=== PATIENT | female | born 1985 | race Caucasian/White ===

== ENCOUNTER 2017-06-29 15:30 | Emergency (ER) | payer BC, OTHER ==
[2017-06-29] MEDS ORDERED: SODIUM CHLORIDE 1,000 ML IV STA ×2 (15:38→18:47)
--- NOTE | 2017-06-29 15:38 | PDOC ---
History of Present Illness - General History Source: Patient, Old Records Exam Limitations: No Limitations - History of Present Illness Initial Comments: 06/29/17 16:17 The patient is a 31 year old 9 week female with no significant past medical history who presents to the emergency department with nausea and vomiting today. The patient states that she has been before and that she was sick with similar symptoms throughout her entire first . She states that she has been unable to keep any food or fluid down today. The patient states that her symptoms are usually worse at night. She notes that in the past Zofran and fluids have helped with her symptoms. She denies and abdominal or epigastric pain. <Nakul Carrera - Last Filed: 06/29/17 16:18> <Karen Voss - Last Filed: 06/29/17 17:36> <Imtiaz Park - Last Filed: 06/29/17 20:10> - General Chief Complaint: Nausea/Vomiting Stated Complaint: VOMITING [address] [facility] Time Seen by Provider: 06/29/17 15:37 Past History <Nakul Carrera - Last Filed: 06/29/17 16:18> <Karen Voss - Last Filed: 06/29/17 17:36> <Imtiaz Park - Last Filed: 06/29/17 20:10> - Past Medical History Allergies/Adverse Reactions: Allergies Allergy/AdvReac Type Severity Reaction Status Date / Time No Known Allergies Allergy Unverified 06/29/17 15:32 Home Medications: Ambulatory Orders Doxylamine Succinate/Vit B6 [Diclegis Dr 10-10 mg Tablet] 1 each PO BID Doxylamine Succinate/Vit B6 [Diclegis Dr 10-10 mg Tablet] 2 each PO HS 06/29/17 Metoclopramide HCl [Reglan] 10 mg PO TID PRN #12 tablet 06/29/17 Ondansetron [Zofran Odt -] 4 mg SL BID PRN #14 od.tablet 06/29/17 Review of Systems - Review of Systems Able to Perform ROS?: Yes Comments:: 06/29/17 16:18 GENERAL/CONSTITUTIONAL: No fever or chills. No weakness. HEAD, EYES, EARS, NOSE AND THROAT: No change in vision. No ear pain or discharge. No sore throat. GASTROINTESTINAL: (+) Nausea, Vomiting. No diarrhea or constipation. GENITOURINARY: No dysuria, frequency, or change in urination. CARDIOVASCULAR: No chest pain or shortness of breath. MUSCULOSKELETAL: No joint or muscle swelling or pain. No neck or back pain. ENDOCRINE: No increased thirst. No abnormal weight change. <Nakul Carrera - Last Filed: 06/29/17 16:18> *Physical Exam - Vital Signs Last Vital Signs Temp Pulse Resp BP Pulse Ox 97.8 F 87 16 110/71 99 06/29/17 15:31 06/29/17 15:31 06/29/17 15:31 06/29/17 15:31 06/29/17 15:31 <Nakul Carrera - Last Filed: 06/29/17 16:18> - Physical Exam Comments: GENERAL: Awake, alert, and fully oriented, in no acute distress HEAD: No signs of trauma EYES: PERRLA, EOMI, sclera anicteric, conjunctiva clear ENT: Auricles normal inspection, hearing grossly normal, nares patent, oropharynx clear without exudates. Dry mucosa NECK: Normal ROM, supple, no lymphadenopathy, JVD, or masses LUNGS: Breath sounds equal, clear to auscultation bilaterally. No wheezes, and no crackles HEART: Regular rate and rhythm, normal S1 and S2, no murmurs, rubs or gallops ABDOMEN: Soft, nontender, normoactive bowel sounds. No guarding, no rebound. No masses EXTREMITIES: Normal range of motion, no edema. No clubbing or cyanosis. No cords, erythema, or tenderness NEUROLOGICAL: Cranial nerves II through XII grossly intact. Normal speech, normal gait SKIN: Warm, Dry, normal turgor, no rashes or lesions noted. <Karen Voss - Last Filed: 06/29/17 17:36> - Vital Signs Last Vital Signs Temp Pulse Resp BP Pulse Ox 99.7 F H 79 16 97/59 98 06/29/17 19:17 06/29/17 19:56 06/29/17 19:56 06/29/17 19:56 06/29/17 19:56 <Imtiaz Park - Last Filed: 06/29/17 20:10> ED Treatment Course - LABORATORY CBC & Chemistry Diagram: 06/29/17 16:05 06/29/17 16:05 - Medications Given in the ED: ED Medications Discontinued Medications Generic Name Dose Route Start Last Admin Trade Name Freq PRN Reason Stop Dose Admin Ondansetron HCl 4 mg 06/29/17 15:47 06/29/17 16:12 Zofran Injection IVPUSH 06/29/17 15:48 4 mg ONCE ONE Administration <Nakul Carrera - Last Filed: 06/29/17 16:18> - LABORATORY CBC & Chemistry Diagram: 06/29/17 16:05 06/29/17 16:05 <Karen Voss - Last Filed: 06/29/17 17:36> - LABORATORY CBC & Chemistry Diagram: 06/29/17 16:05 06/29/17 16:05 - ADDITIONAL ORDERS Additional order review: Laboratory Results 06/29/17 06/29/17 16:05 16:05 Sodium 130 L Potassium 3.5 Chloride 101 Carbon Dioxide 23 Anion Gap 6 L BUN 6 L Creatinine < 0.8 Creat Clearance w eGFR > 60 Random Glucose 114 H Calcium 9.1 Total Bilirubin < 0.5 AST 23 ALT 21 Alkaline Phosphatase 64 Total Protein 7.0 Albumin 3.9 Beta HCG, Quant 688677.9 Urine Color Yellow Urine Appearance Slightly Urine pH 6.5 Ur Specific [place] 1.025 Urine Protein Negative Urine Glucose (UA) Negative Urine Ketones Trace Urine Blood Negative Urine Nitrite Negative Urine Bilirubin Negative Urine Urobilinogen 0.2 Ur Leukocyte Esterase Negative 06/29/17 16:05 RBC 4.47 MCV 87.2 MCHC 35.1 RDW 11.9 MPV 7.9 Neutrophils % 75.9 Lymphocytes % 17.1 Monocytes % 5.3 Eosinophils % 0.4 Basophils % 1.3 - Medications Given in the ED: ED Medications Discontinued Medications Generic Name Dose Route Start Last Admin Trade Name Freq PRN Reason Stop Dose Admin Lactated Ringer's 1,000 ml in 1,000 mls @ 125 mls/hr 06/29/17 15:45 06/29/17 16:04 Lactated Ringers Solution IV 125 mls/hr ASDIR ELSY Administration Dextrose/Sodium Chloride 1,000 mls @ 1,000 mls/hr 06/29/17 16:46 06/29/17 17: 20 D5-Ns - IV 06/29/17 17:45 1,000 mls/hr ONCE ONE Administration Sodium Chloride 1,000 mls @ 1,000 mls/hr 06/29/17 18:47 06/29/17 18:59 Normal Saline - IV 06/29/17 19:46 1,000 mls/hr ASDIR STA Administration Metoclopramide HCl 10 mg 06/29/17 18:21 06/29/17 18:51 Reglan Injection - IVPB 06/29/17 18:22 10 mg ONCE ONE Administration Ondansetron HCl 4 mg 06/29/17 15:47 06/29/17 16:12 Zofran Injection IVPUSH 06/29/17 15:48 4 mg ONCE ONE Administration Ondansetron HCl 4 mg 06/29/17 16:46 06/29/17 17:20 Zofran Injection IVPUSH 06/29/17 16:47 4 mg ONCE ONE Administration <Imtiaz Park - Last Filed: 06/29/17 20:10> Medical Decision Making - Medical Decision Making 06/29/17 16:03 Pt with history of hyperemesis throughout her entire last , now with vomiting today, unable to tolerate anything PO. Will check labs, UA. Will give IVF and zofran and reassess. 06/29/17 16:46 Pt has nearly completed first liter of fluid, states she does not feel a significant improvement in nausea. Will give additional dose of zofran and switch to D5NS. 06/29/17 17:22 Pt reporting improvement in symptoms, has not been given the second dose of zofran. Will offer crackers as per her request. 06/29/17 17:37 Tolerating PO challenge. <Karen Voss - Last Filed: 06/29/17 17:36> - Medical Decision Making 06/29/17 20:09 received on signout. now imporved, toelratin PO <Imtiaz Park - Last Filed: 06/29/17 20:10> *DC/Admit/Observation/Transfer - Attestations Scribe Attestion: 06/29/17 16:18 Documentation prepared by Nakul Carrera, acting as medical stenographer for Karen Voss MD. <aNkul Carrera - Last Filed: 06/29/17 16:18> - Discharge Dispostion Admit: No <Karen Voss - Last Filed: 06/29/17 17:36> <Imtaiz Park - Last Filed: 06/29/17 20:10> Diagnosis at time of Disposition: Hyperemesis gravidarum - Discharge Dispostion Disposition: HOME Condition at time of disposition: Stable - Prescriptions Prescriptions: Ondansetron [Zofran Odt -] 4 mg SL BID PRN #14 od.tablet PRN Reason: Nausea And/Or Vomiting - Patient Instructions Printed Discharge Instructions: DI for Hyperemesis Gravidarum Additional Instructions: Continue Diclegis. Use zofran only if you continue to have vomiting after using diclegis first. It is meant to be dissolved under the tongue.
[2017-06-29] MEDS ORDERED: LACTATED RINGERS SOLUTION 1,000 ML/1,000 ML INFUS.BAG IV SCH (15:45)
[2017-06-29 15:46] VITALS: BMI 22.4
[2017-06-29] MEDS ORDERED: ONDANSETRON 4 MG/2 ML VIAL IVPUSH ONE ×2 (15:47→16:46)
[2017-06-29] MEDS ORDERED: ONDANSETRON 4 MG/2 ML VIAL ONE ×2 (16:07→17:26)
[2017-06-29 16:14] LABS: PH,URINE 6.5 (4.5-8); URINE APPEARANCE Slightly; URINE BILIRUBIN Negative (NEGATIVE); URINE BLOOD Negative (NEGATIVE); URINE GLUCOSE (UA) Negative (NEGATIVE); URINE KETONE Trace (NEGATIVE); URINE LEUK ESTERASE Negative (NEGATIVE); URINE NITRITE Negative (NEGATIVE); URINE PROTEIN Negative (NEGATIVE); URINE UROBILINOGEN 0.2 (0.2-1.0)
[2017-06-29 16:21] LABS: HEMOGLOBIN 13.7 GM/dl (10.7-15.3)
[2017-06-29 16:24] LABS: BASO % 1.3 % (0-2.0); RBC 4.47 M/mm3 (3.60-5.2)
[2017-06-29 16:25] LABS: URINE COLOR YELLOW
[2017-06-29 16:27] LABS: EOS % 0.4 % (0-4.5); LYMPH % 17.1 % (8-40); MCH 30.6 pg (25.7-33.7); MCHC 35.1 g/dl (32.0-36.0); MEAN CELL VOLUME 87.2 fl (80-96); MEAN PLT VOLUME 7.9 fl (7.5-11.1); MONO % 5.3 % (3.8-10.2); NEUT % 75.9 % (42.8-82.8); PLATELET COUNT 239 K/MM3 (134-434); RDW 11.9 % (11.6-15.6); WHITE BLOOD COUNT 9.7 K/mm3 (4.0-10.8)
[2017-06-29 16:35] LABS: ALBUMIN 3.9 g/dl (3.5-5.0); ALK PHOS 64 U/L (32-92); ANION GAP 6 (8-16); BLOOD UREA NITROGEN 6 mg/dl (7-18); CALCIUM 9.1 mg/dl (8.4-10.2); CHLORIDE 101 mmol/L (98-107); CO2 23 mmol/L (22-28); GLUCOSE,RANDOM 114 mg/dl (74-106); POTASSIUM 3.5 mmol/L (3.5-5.1); SGOT/AST 23 U/L (10-42); SGPT/ALT 21 U/L (10-40); SODIUM 130 mmol/L (136-145)
[2017-06-29 16:44] LABS: CREATININE < 0.8 mg/dl (0.6-1.3)
[2017-06-29 16:45] LABS: BILIRUBIN,TOTAL < 0.5 mg/dl (0.2-1.0)
[2017-06-29] MEDS ORDERED: DEXTROSE 5%-NORMAL SALINE 1,000 ML IV ONE (16:46)
[2017-06-29] MEDS ORDERED: METOCLOPRAMIDE HCL INJECTION 10 MG/2 ML VIAL IVPB ONE (18:21)
[2017-06-29 19:18] VITALS: TEMP 99.7
[2017-06-29 19:56] VITALS: BP 97/59; PULSE 79
== END 2017-06-29 20:12 | disposition home or self-care (01) ==
LOC: FER 15:30
PROC: 3E0337Z Introduction of Electrolytic and Water Balance Substance into Peripheral Vein, Percutaneous Approach (ICD-10-PCS; principal; 2017-06-29)
PROC: 3E0F7GC Introduction of Other Therapeutic Substance into Respiratory Tract, Via Natural or Artificial Opening (ICD-10-PCS; 2017-06-29)
PROC: 3E033GC Introduction of Other Therapeutic Substance into Peripheral Vein, Percutaneous Approach (ICD-10-PCS; 2017-06-29)
DX: O26.891 Other specified pregnancy related conditions, first trimester (principal); Z3A.09 9 weeks gestation of pregnancy
CPT/HCPCS: 36415; 80053; 81003; 84702; 85025; 99284-25

== ENCOUNTER 2017-08-16 11:01 | Emergency (ER) | payer OTHER ==
[2017-08-16] MEDS ORDERED: METOCLOPRAMIDE HCL INJECTION 10 MG/2 ML VIAL IVPUSH ONE (11:05)
[2017-08-16] MEDS ORDERED: SODIUM CHLORIDE 2,000 ML IV STA (11:05)
--- NOTE | 2017-08-16 11:06 | PDOC ---
History of Present Illness - General Chief Complaint: Nausea/Vomiting Stated Complaint: VOMITING SINCE YESTERDAY 15 WEEKS Time Seen by Provider: 08/16/17 11:05 History Source: Patient Exam Limitations: No Limitations - History of Present Illness Initial Comments: 08/16/17 11:18 31 yo F c/ pmh hyperemesis gravidarum, ~16 wks p/w nausea and vomiting since yesterday. Pt has had multiple ED visits for hyperemesis gravidarum. Since yesterday, has vomited multiple times. But denies fever, abdominal pain, dysuria, vaginal discharge or vaginal bleeding. States has taken reglan and doxylamine at home with little relief. Past History - Past Medical History Allergies/Adverse Reactions: Allergies Allergy/AdvReac Type Severity Reaction Status Date / Time No Known Allergies Allergy Verified 08/16/17 11:04 Home Medications: Ambulatory Orders Doxylamine Succinate/Vit B6 [Diclegis Dr 10-10 mg Tablet] 1 each PO BID Doxylamine Succinate/Vit B6 [Diclegis Dr 10-10 mg Tablet] 2 each PO HS 06/29/17 Metoclopramide HCl [Reglan] 10 mg PO BID 08/16/17 COPD: No Thyroid Disease: No - Suicide/Smoking/Psychosocial Hx Smoking History: Never smoked Have you smoked in the past 12 months: No Hx Alcohol Use: No Drug/Substance Use Hx: No Substance Use Type: None Review of Systems - Review of Systems Able to Perform ROS?: Yes Comments:: 08/16/17 11:31 GENERAL/CONSTITUTIONAL: No fever, weakness. HEAD, EYES, EARS, NOSE AND THROAT: No change in vision. No ear pain or discharge. No sore throat. CARDIOVASCULAR: No chest pain or shortness of breath. RESPIRATORY: No cough, wheezing, or hemoptysis. GASTROINTESTINAL: + nausea and vomiting. No abdominal pain, diarrhea, or decreased PO intolerance or vaginal bleeding. GENITOURINARY: No dysuria, frequency, or change in urination. MUSCULOSKELETAL: No joint or muscle swelling or pain. No neck or back pain. SKIN: No rash NEUROLOGIC: No headache, vertigo, loss of consciousness, or change in strength/ sensation. ENDOCRINE: No increased thirst. No abnormal weight change. HEMATOLOGIC/LYMPHATIC: No anemia, easy bleeding, or history of blood clots. ALLERGIC/IMMUNOLOGIC: No hives or skin allergy. *Physical Exam - Physical Exam Comments: 08/16/17 11:31 GENERAL: Awake, alert, and fully oriented, in no acute distress. +dry mucous membranes HEAD: No signs of trauma EYES: PERRLA, EOMI, sclera anicteric, conjunctiva clear ENT: Auricles normal inspection, hearing grossly normal, nares patent NECK: Normal ROM, supple LUNGS: Breath sounds equal, clear to auscultation bilaterally. No wheezes, and no crackles HEART: Regular rate and rhythm, normal S1 and S2, no murmurs, rubs or gallops ABDOMEN: Soft, nontender, No guarding, no rebound. No masses EXTREMITIES: Normal range of motion, no edema. No clubbing or cyanosis. No cords, erythema, or tenderness NEUROLOGICAL: Cranial nerves II through XII grossly intact. Normal speech, normal gait SKIN: Warm, Dry, normal turgor, no rashes or lesions noted. ED Treatment Course - LABORATORY CBC & Chemistry Diagram: 08/16/17 11:27 08/16/17 11:27 Medical Decision Making - Medical Decision Making 08/16/17 11:32 Vital Signs Temp Pulse Resp BP Pulse Ox 98.3 F 72 16 103/62 100 08/16/17 11:03 08/16/17 11:03 08/16/17 11:03 08/16/17 11:03 08/16/17 11:03 I suspect likely hyperemesis gravidarum. IVF, antiemetics, and reassess. 08/16/17 13:55 CBC, BMP 08/16/17 11:27 08/16/17 11:27 CMP Sodium 132 mmol/L (136-145) L 08/16/17 11:27 Potassium 3.7 mmol/L (3.5-5.1) 08/16/17 11:27 Chloride 101 mmol/L (98-107) 08/16/17 11:27 Carbon Dioxide 23 mmol/L (22-28) 08/16/17 11:27 Anion Gap 8 (8-16) 08/16/17 11:27 BUN 7 mg/dl (7-18) 08/16/17 11:27 Creatinine < 0.8 mg/dl (0.6-1.3) 08/16/17 11:27 Creat Clearance w eGFR > 60 (>60) 08/16/17 11:27 Random Glucose 84 mg/dl (74-106) 08/16/17 11:27 Calcium 8.4 mg/dl (8.4-10.2) 08/16/17 11:27 Total Bilirubin < 0.5 mg/dl (0.2-1.0) D 08/16/17 11:27 AST 21 U/L (10-42) 08/16/17 11:27 ALT 21 U/L (10-40) D 08/16/17 11:27 Alkaline Phosphatase 88 U/L (32-92) D 08/16/17 11:27 Total Protein 6.6 g/dl (6.4-8.3) 08/16/17 11:27 Albumin 3.3 g/dl (3.5-5.0) L 08/16/17 11:27 Pt reports feeling better after IVF and anti-emetics. Patient reports that she has been persistently nauseous and vomiting since her conception and has been vomiting throughout her first . She reports that she has enough prescriptions at home. I advised her that if she continues to have persistent vomiting that she should return to the ER. The patient verbalizes understanding and agrees with plan. Pt will go home with her partner. I discussed the physical exam findings, ancillary test results and final diagnoses with the patient. I answered all of the patient's questions. The patient was satisfied with the care received and felt comfortable with the discharge plan and treatment plan. The patient will call their primary care physician within 24 hours to arrange follow-up and will return to the Emergency Department with any new, persistant or worsening symptoms. *DC/Admit/Observation/Transfer Diagnosis at time of Disposition: Hyperemesis gravidarum - Discharge Dispostion Disposition: HOME Condition at time of disposition: Stable Admit: No - Referrals - Patient Instructions Printed Discharge Instructions: DI for Hyperemesis Gravidarum Additional Instructions: Please drink plenty of fluids and rest. Follow up with your doctor. - Post Discharge Activity
[2017-08-16 11:13] VITALS: BMI 23.3
[2017-08-16 11:34] LABS: HEMOGLOBIN 12.3 GM/dl (10.7-15.3)
[2017-08-16 11:37] LABS: BASO % 2.5 % (0-2.0); EOS % 0.3 % (0-4.5); HEMATOCRIT 33.9 % (32.4-45.2); LYMPH % 16.3 % (8-40); MCH 32.3 pg (25.7-33.7); MCHC 36.2 g/dl (32.0-36.0); MEAN CELL VOLUME 89.3 fl (80-96); MEAN PLT VOLUME 7.8 fl (7.5-11.1); NEUT % 74.9 % (42.8-82.8); PLATELET COUNT 240 K/MM3 (134-434); WHITE BLOOD COUNT 8.2 K/mm3 (4.0-10.8)
[2017-08-16 11:49] LABS: ALBUMIN 3.3 g/dl (3.5-5.0); ALK PHOS 88 U/L (32-92); ANION GAP 8 (8-16); BLOOD UREA NITROGEN 7 mg/dl (7-18); CALCIUM 8.4 mg/dl (8.4-10.2); CHLORIDE 101 mmol/L (98-107); CO2 23 mmol/L (22-28); GLUCOSE,RANDOM 84 mg/dl (74-106); POTASSIUM 3.7 mmol/L (3.5-5.1); SGOT/AST 21 U/L (10-42); SGPT/ALT 21 U/L (10-40); SODIUM 132 mmol/L (136-145); TOT PROT 6.6 g/dl (6.4-8.3)
[2017-08-16] MEDS ORDERED: ONDANSETRON 4 MG/2 ML VIAL IVPB ONE ×2 (12:07→13:57)
[2017-08-16 12:22] LABS: BILIRUBIN,TOTAL < 0.5 mg/dl (0.2-1.0); CREATININE < 0.8 mg/dl (0.6-1.3)
[2017-08-16] MEDS ORDERED: ONDANSETRON 4 MG/2 ML VIAL ONE ×2 (12:43→14:16)
[2017-08-16 13:07] VITALS: TEMP 98.7
[2017-08-16 13:51] VITALS: BP 93/56; PULSE 70
== END 2017-08-16 14:26 | disposition home or self-care (01) ==
LOC: FER 11:01
PROC: 3E033GC Introduction of Other Therapeutic Substance into Peripheral Vein, Percutaneous Approach (ICD-10-PCS; principal; 2017-08-16)
PROC: 3E0337Z Introduction of Electrolytic and Water Balance Substance into Peripheral Vein, Percutaneous Approach (ICD-10-PCS; 2017-08-16)
DX: O21.0 Mild hyperemesis gravidarum (principal); Z3A.16 16 weeks gestation of pregnancy
CPT/HCPCS: 36415; 80053; 85025; 99283-25; J7030